=== PATIENT | male | born 1950 | race Caucasian/White ===

== ENCOUNTER 2018-12-15 05:18 | Emergency (ER) | payer MEDICARE, OTHER ==
[~2018-12-15] VITALS: Ht 170.2 cm; Wt 150.0 kg
[~2018-12-15 05:18] MED LIST: ALLOPURINOL300 MG PO; AMOXICILLIN500 MG PO; ASPIRIN EC81 MG PO; CARVEDILOL6.25 MG PO; CELECOXIB200 MG PO; COLCHICINE0.6 M2 PO; DILTIAZEM60 M1 PO; IMODIUM2 MG PO; ISOSORBIDE MONO30 MG PO; MULTIVITAMI1 PO; PRADAXA150 MG PO; PRILOSEC20 MG PO; RAMIPRIL2.5 MG PO; TAMSULOSIN0.4 MG PO; TYLENOL 8 HOUR650 MG PO
[2018-12-15] MEDS ORDERED: HYDROCHLOROT25 MG PO (05:41)
[2018-12-15] MEDS ORDERED: DILTIAZEM90 M1 PO (05:41)
[2018-12-15] MEDS ORDERED: PLAVIX75 MG PO (05:41)
[2018-12-15] MEDS ORDERED: IBUPROFEN600 MG PO (08:05)
[2018-12-15 08:18] VITALS: BP 114/61
== END 2018-12-15 08:17 | disposition home or self-care (01) ==
LOC: ED 05:18
PROC: 2W3BXYZ Immobilization of Left Upper Arm using Other Device (ICD-10-PCS; principal; 2018-12-15)
DX: M25.512 Pain in left shoulder (principal); I10 Essential (primary) hypertension

== ENCOUNTER 2019-09-22 19:40 | Emergency (ER) | payer MEDICARE, OTHER ==
[~2019-09-22 19:40] MED LIST changes: +DILTIAZEM90 M1 PO; +HYDROCHLOROT25 MG PO; +IBUPROFEN600 MG PO; +PLAVIX75 MG PO
[2019-09-22] MEDS ORDERED: CLONAZEPAM1 MG PO (20:01)
[2019-09-22 21:10] LABS: HEMATOCRIT 41.8 % (39.0-50.0); HEMOGLOBIN 13.5 g/dl (14.0-18.0); IMMATURE GRANULOCYTES 0.5 % (0.0-5.0); MEAN CORPUSCULAR HGB 32.3 pG CALC (26.0-32.0); MEAN CORPUSCULAR HGB CONC 32.3 g/dL CAL (32.0-36.0); NEUT# 11.1 thou/uL (1.82-7.42); RED BLOOD COUNT 4.18 mill/uL (4.70-6.10); RED CELL DISTRI WIDTH 13.7 % (11.5-15.5)
[2019-09-22 21:34] LABS: ALBUMIN 3.8 g/dL (3.2-5.0); ALKALINE PHOSPHATASE 70 u/l (38-126); ANION GAP 14 (6-22 (CALC)); BILIRUBIN, TOTAL 0.6 mg/dL (0.0-1.4); BUN 20 mg/dL (8-23); BUN/CREATININE RATIO 20 (12-20 (CALC)); CARBON DIOXIDE 23 mmol/l (22-30); CHLORIDE 104 mmol/l (95-108); GFR > 60 ML/MIN (>=60 (CALC)); GFR FOR AFR.AMER. > 60 ML/MIN (>=60 (CALC)); POTASSIUM 3.8 mmol/l (3.5-5.1); SGOT/AST 23 u/l (19-48); SODIUM 138 mmol/l (137-146); TOTAL PROTEIN 7.3 g/dL (6.3-8.2)
[2019-09-22] MEDS ORDERED: IBUPROFEN600 MG PO (23:58)
[2019-09-23 00:02] VITALS: BP 165/79
== END 2019-09-23 02:52 | disposition home or self-care (01) ==
LOC: ED 19:40
PROVIDERS: Emergency Medicine
DX: M10.042 Idiopathic gout, left hand (principal); I10 Essential (primary) hypertension

== ENCOUNTER 2023-11-13 15:40 | Emergency (ER) | payer MEDICARE, OTHER ==
[~2023-11-13] VITALS: Ht 170.2 cm; Wt 124.7 kg
[~2023-11-13 15:40] MED LIST changes: +ALBUTEROL108 MCG/AC PO; +AMITRIPTYLINE H10 MG PO; +ANORO ELLIPTA 61 AER IN; +CARVEDILOL25 MG PO; +CHLORTHALID50 MG PO; +CLONAZEPAM1 MG PO; +COZAAR100 MG PO; +FINASTERIDE1 MG PO; +OMEPRAZOLE DR40 MG PO; +ONGLYZA5 MG PO; +PRADAXA150 M1 PO; +PRAVASTATIN40 MG PO; +PROCARDIA XL60 MG PO; +PROLIA60 MG/ML SC; +PROTONIX40 M2 PO; +TOPROL XL25 M1 PO; +TRAMADOL HYDROC50 M1 PO; +TRAZODONE50 MG PO; +VITAMIN D2400 UNIT PO
[2023-11-13 15:59] VITALS: BP 139/81
[2023-11-13 16:00] VITALS: BP 147/76
[2023-11-13 16:16] VITALS: BP 131/77
[2023-11-13] MEDS ORDERED: Diph, Acellular Pertussis, Tet 0.5 ML/VIAL (Tdap) SDV IM ONE (16:20)
[2023-11-13 16:31] VITALS: BP 134/76
[2023-11-13 16:45] VITALS: BP 134/76
== END 2023-11-13 16:56 | disposition home or self-care (01) ==
LOC: ED 15:40
DX: S61.210A Laceration without foreign body of right index finger without damage to nail, initial encounter (principal); I10 Essential (primary) hypertension; W27.4XXA Contact with kitchen utensil, initial encounter

== ENCOUNTER 2023-12-05 08:07 | Day surgery (SDC) | payer MEDICARE, OTHER ==
[~2023-12-05] VITALS: Ht 167.6 cm; Wt 122.5 kg
[~2023-12-05 08:07] MED LIST changes: +ASPIRIN 81 LOW81 MG PO; +KLONOPIN0.5 MG PO; +TYLENOL325 M2 PO
[2023-12-05] MEDS ORDERED: LACTATED RINGER'S 1,000 ML IV ONE (08:27)
[2023-12-05] MEDS ORDERED: FAMOTIDINE 10MG/ML 2ML SDV IV ONE (08:27)
[2023-12-05 09:52] VITALS: BP 125/68
[2023-12-05] MEDS ORDERED: GLYCOPYRROLATE 0.2 MG/ML IV ONE (15:15)
[2023-12-05] MEDS ORDERED: LIDOCAINE HCL 2% 2ML SDV IV ONE (15:15)
[2023-12-05] MEDS ORDERED: PROPOFOL 200 MG/20 ML VIAL IV ONE (15:15)
== END 2023-12-05 10:10 | disposition home or self-care (01) ==
LOC: ENDO 08:07 → ORM 09:45 → ENDO 10:10 → ORM 10:15
PROVIDERS: ATTEND Internal Medicine Gastroenterology
PROC: 0DBK8ZX Excision of Ascending Colon, Via Natural or Artificial Opening Endoscopic, Diagnostic (ICD-10-PCS; principal; 2023-12-05)
PROC: 0DB98ZX Excision of Duodenum, Via Natural or Artificial Opening Endoscopic, Diagnostic (ICD-10-PCS; 2023-12-05)
PROC: 0DB78ZX Excision of Stomach, Pylorus, Via Natural or Artificial Opening Endoscopic, Diagnostic (ICD-10-PCS; 2023-12-05)
PROC: 0DB48ZX Excision of Esophagogastric Junction, Via Natural or Artificial Opening Endoscopic, Diagnostic (ICD-10-PCS; 2023-12-05)
DX: K57.31 Diverticulosis of large intestine without perforation or abscess with bleeding (principal); D12.2 Benign neoplasm of ascending colon; K64.8 Other hemorrhoids; K29.71 Gastritis, unspecified, with bleeding; K44.9 Diaphragmatic hernia without obstruction or gangrene; K31.89 Other diseases of stomach and duodenum; D50.9 Iron deficiency anemia, unspecified; I48.91 Unspecified atrial fibrillation; I11.0 Hypertensive heart disease with heart failure; I50.22 Chronic systolic (congestive) heart failure; E78.5 Hyperlipidemia, unspecified; Z86.73 Personal history of transient ischemic attack (TIA), and cerebral infarction without residual deficits; Z98.84 Bariatric surgery status; Z95.5 Presence of coronary angioplasty implant and graft; Z95.0 Presence of cardiac pacemaker; Z95.818 Presence of other cardiac implants and grafts; Z87.891 Personal history of nicotine dependence

== ENCOUNTER 2024-06-29 06:51 | Day surgery (SDC) | payer MEDICARE, OTHER ==
[~2024-06-29] VITALS: Ht 167.6 cm; Wt 117.9 kg
[2024-06-29] MEDS ORDERED: FAMOTIDINE 10MG/ML 2ML SDV IV ONE (06:55)
[2024-06-29] MEDS ORDERED: Levofloxacin 500 mg Premix 100 ML IV ONE (06:55)
[2024-06-29] MEDS ORDERED: LACTATED RINGER'S 1,000 ML IV ONE (06:55)
[2024-06-29] MEDS ORDERED: SODIUM CHLORIDE 0.9% 1,000 ML IV ONE (08:16)
[2024-06-29 10:07] VITALS: BP 162/95
[2024-06-29] MEDS ORDERED: PROPOFOL 200 MG/20 ML VIAL IV ONE (10:49)
[2024-06-29] MEDS ORDERED: LIDOCAINE HCL 2% 2ML SDV IV ONE (10:49)
== END 2024-06-29 10:00 | disposition home or self-care (01) ==
LOC: ORM 06:51
PROVIDERS: ATTEND Urology
PROC: 0VB03ZX Excision of Prostate, Percutaneous Approach, Diagnostic (ICD-10-PCS; principal; 2024-06-29)
DX: C61 Malignant neoplasm of prostate (principal); I10 Essential (primary) hypertension; I25.10 Atherosclerotic heart disease of native coronary artery without angina pectoris; I48.91 Unspecified atrial fibrillation; Z87.891 Personal history of nicotine dependence; Z95.5 Presence of coronary angioplasty implant and graft; Z95.0 Presence of cardiac pacemaker; Z95.818 Presence of other cardiac implants and grafts; Z79.82 Long term (current) use of aspirin
CPT/HCPCS: J1956